=== PATIENT | male | born 1960 | race Caucasian/White ===

== ENCOUNTER 2018-09-29 18:24 | Emergency (ER) | payer OTHER ==
[~2018-09-29] VITALS: Ht 170.2 cm; Wt 5.0 kg
[2018-09-29 18:32] VITALS: Ht 170.2 cm; Wt 5.0 kg
--- NOTE | 2018-09-29 22:26 | ERD ---
ER Documentation Chief Complaint Chief Complaint slipped and fell x 3 days ago, c/o right knee pain HPI 58-year-old gentleman who presents to the emergency room with right knee pain. He states that 3 days ago he slipped and fell and hit his right patella on the ground. The patient is having moderate to severe throbbing pain to the right knee since then. Mild associated swelling. The patient has been ambulatory. 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 He denies any head trauma or loss of consciousness. ROS All systems reviewed and are negative except as per history of present illness. Allergies Allergies: Coded Allergies: No Known Drug Allergies (Verified Allergy, Unknown, 09/29/18) FmHx Family History: No diabetes Physical Exam Vitals Vital Signs Date Temp Pulse Resp B/P (MAP) Pulse Ox O2 O2 Flow FiO2 Time Delivery Rate 09/29/18 97.9 89 18 180/90 8 18:32 (120) Physical Exam General: Well developed, well nourished, no acute distress Head: Normocephalic, atraumatic. Eyes: EOM intact ENT: Moist mucous membranes Neck: Full ROM Respiratory: No respiratory distress Cardiovascular: Well perfused distally Abdominal: Nondistended : Deferred MSK: Mild soft tissue swelling and focal tenderness overlying the patella of the right knee. Normal active and passive range of motion without ligamentous or tendinous instability. Negative Marilin test. Neurovascular intact distally with an well-perfused distally. Neurologic: Alert and oriented, moving all extremities, normal speech, steady gait Skin: No rash Psych: Normal mood Results 24 hrs Current Medications Medications Dose Sig/Jeffrey Start Time Status Last (Trade) Ordered Route PRN Stop Time Admin Dose Reason Admin Ibuprofen 800 mg ONCE ONCE 09/29/18 DC 09/29/18 (Motrin) PO 22:30 22:44 09/29/18 22:31 Procedures/MDM EKG, MONITORS, & DIAGNOSTIC IMAGING: X-ray right knee: I reviewed and interpreted multiple views of the x-ray Bones: No evidence of acute fracture dislocation or subluxation Soft tissue: No evidence of foreign body PROCEDURES: Splint Application Note: Splint type: Yared wrap Extremity: Right knee Indication: Knee contusion The patient was consented at bedside prior to splint application and states understanding of risks, benefits, and alternatives. The patient was neurovascularly intact prior to and status post application of the splint. The patient tolerated the procedure well and there were no complications. MEDICAL DECISION MAKING: Patient with contusion of the right knee. Lower clinical concern for fracture though x-ray imaging of the knee would certainly be appropriate. Rest ice elevation and compression were discussed with the patient. ER COURSE: * Patient given Motrin and placed in Yared wrap * X-ray imaging appears negative for acute fracture. The patient is ambulatory. Low concern for occult fracture or tibial plateau fracture. No indication for CT imaging at this time. The patient was advised of rest ice elevation and compression. He seems more comfortable with Yared wrap. * Outpatient orthopedic follow-up recommended CONSULTATION: [None] DISPOSITION PLAN: The patient does not have an identifiable emergent medical condition that warrants inpatient hospitalization at this time. The patient is deemed safe for discharge with outpatient follow-up. We discussed follow up with the patient's primary care doctor within 24 to 48 hours as needed. We also discussed return to the emergency room for worsening symptoms or worsening condition. Outpatient referral: Orthopedic surgery as needed Discharge Medications: Motrin Departure Diagnosis: Primary Impression: Contusion of right knee Encounter type: initial encounter Qualified Codes: S80.01XA - Contusion of right knee, initial encounter Condition: Stable DHRUV CORDERO MD Sep 29, 2018 22:26
[2018-09-29] MEDS ORDERED: IBUPROFEN 800 MG TAB PO ONE (22:30)
[2018-09-29] MEDS ORDERED: IBUP800T48 PO (23:01)
[2018-09-29 23:17] VITALS: BP 162/92; PULSE 75; RESP 20
== END 2018-09-29 23:19 | disposition home or self-care (01) ==
LOC: FTE 18:24
DX: S80.01XA Contusion of right knee, initial encounter (principal); W01.198A Fall on same level from slipping, tripping and stumbling with subsequent striking against other object, initial encounter; Y92.89 Other specified places as the place of occurrence of the external cause
CPT/HCPCS: 73562; Z7502; Z7610